=== PATIENT | female | born 1965 | race Caucasian/White ===

== ENCOUNTER → 2016-08-02 | Day surgery (SDC) | payer OTHER ==
[~2016-08-02] MED LIST: ALLEGRA ALLERG180 MG PO; ALLEGRA-D1 TAB.SR1; ALLERGY INJ; AZELASTINE137 MCG/0.; CALTRATE-600/VI1 TA1 PO; CALTRATE-600/VI1 TA2 PO; CELECOXIB200 MG PO; DIGESTIVE ADVA1 EAC1 PO; FLONASE ALLERG9.9 ML; LAMISIL; MULTI VITAMIN1 EACH PO; MULTI-VITAMIN1 TAB; NEXIUM PO; PRAVACHOL20 MG PO; PROTONIX PO; SINGULAIR; SINUS DECONGEST10 MG PO; TRAMADOL HCL50 M1 PO; VOLTAREN75 MG PO; WELLBUTRIN PO; YOUNGEVITY PO; ZELNORM; ZYRTEC10 M1 PO; ZYRTEC10 M2 PO; [UNRECOGNIZED DRUG - OTHER] PO
--- NOTE | ~2016-08-02 | OR ---
Unit #: [id number] #: [id number] Patient: PRADIP KRISHNAN [id number] [address] [place], [place] [address] [id number] O MR#: [id number] NAME: PRADIP KRISHNAN ROOM: Date of Procedure: 08/02/2016 Admission Date: 08/02/2016 Surgeon: Atif Vidal M.D. : 1965 Attending Physician: Atif Vidal M.D. Primary Care Physician: Deloris Myers M.D. OPERATIVE REPORT SERVICES PROVIDED 1. Therapeutic left greater trochanteric bursa steroid injection. 2. Fluoroscopy of the left greater trochanter. PREOPERATIVE DIAGNOSES 1. Left greater trochanteric bursitis. 2. Left sacroiliac joint syndrome. 3. Obstructive sleep apnea, on CPAP. 4. Irritable bowel syndrome, diverticulosis. POSTOPERATIVE DIAGNOSES 1. Left greater trochanteric bursitis. 2. Left sacroiliac joint syndrome. 3. Obstructive sleep apnea, on CPAP. 4. Irritable bowel syndrome, diverticulosis. PROCEDURE PERFORMED Left greater trochanteric bursa steroid injection with fluoroscopy. FOLLOW-UP/REVIEW OF SYSTEMS/PHYSICAL EXAM Ms. Krishnan has responded well to a left sacroiliac joint steroid injection with near complete resolution of left lower back pain for few months. She has left hip pain at this time located on the left greater trochanter, and was recommended left greater trochanteric steroid injection. X-rays of the left hip were within normal limits. She does have pain on walking, climbing stairs, and appears to have greater trochanteric bursitis with the predominant pain generator. Procedure was performed as follows with her consent. INDICATIONS/COMMENTS AND CONSENTS/STATEMENT OF MEDICAL NECESSITY The patient's current medications, allergies and vital signs are documented in the nursing assessment. The risks and benefits of the intervention(s) were discussed with the patient in detail including but not limited to infection, bleeding, meningitis, steroid induced side-effects, nerve damage, paralysis, spinal headaches, neuritis, persistent or worsening pain. The patient wishes to proceed. A separate pain assessment is also in the chart. I have reviewed all of this and have reviewed this with the patient. A current History and Physical is also attached. DESCRIPTION OF PROCEDURE(S) 1. Monitoring and positioning: After appropriate discussions it was Unit #: [id number] #: [id number] Patient: PRADIP KRISHNAN decided to perform the procedure under local anesthesia without supplemental intravenous sedation. Vital signs were monitored in pre, intra and post-procedure phase. Monitoring included EKG, non-invasive BP, pulse oximetry, and temperature. These are documented and were stable. Appropriate supports and restraints were used. 2. Sedation: None. 3. Greater trochanteric bursa steroid injection: The patient was placed in the right lateral decubitus position. Positional supports were used. Sterile prep and drape with carried out with ChloraPrep. Local anesthesia was with infiltrated with 1 mL of 0.25% bupivacaine. The greater trochanter was identified and marked. Once anesthesia was established, a 25-gauge Quincke spinal needle was inserted and advanced to the left greater trochanter, perpendicular to the skin, and advanced to meet os. The needle was now slightly withdrawn. Negative aspiration was performed. Needle placement tested negative for intravascular placement. A left greater trochanteric bursa steroid injection was performed using a total of 5 mL of the solution containing 0.2% bupivacaine and 40 mg of Depo-Medrol. The needle(s) was then removed intact. The skin was washed off. Prep solution and dressings were applied at the injection site(s). The patient tolerated the procedure well. The patient was then observed in the recovery area for 30 minutes. RESULTS The patient had a consistent block with the dose of local anesthetic used. Pain relief was satisfactory. There were no complications or side effects. DISCHARGE CONDITION 1. The patient was discharged in satisfactory condition accompanied by a family member. 2. Post-procedure instructions were given. PLAN(S) The patient was advised to return to the clinic in 2 months for re-assessment and office visit. I thank the patient's referring physician for the opportunity to participate in the care of this patient. Please do not hesitate to call for any questions regarding this patient's pain management. Dictated by... Kadie Finney TD: 08/02/2016 22:59 JOB #: [id number] Unit #: [id number] #: [id number] Patient: PRADIP KRISHNAN OPERATIVE REPORT Page 1 of 1 X Atif Vidal MD PROCEDURE OPERATIVE NOTE
== END | disposition home or self-care (01) ==
LOC: CCSC 07:22
DX: M70.62 Trochanteric bursitis, left hip (principal); M53.3 Sacrococcygeal disorders, not elsewhere classified; G47.33 Obstructive sleep apnea (adult) (pediatric); K58.9 Irritable bowel syndrome, unspecified; K57.90 Diverticulosis of intestine, part unspecified, without perforation or abscess without bleeding
CPT/HCPCS: 77003; J1030; J1040; J2250; J3010

== ENCOUNTER → 2016-08-17 | Outpatient (CLI) | payer OTHER ==
--- NOTE | ~2016-08-17 | US5 ---
[facility] A Service of [facility] & [facility] RADIOLOGY TEXT RESULTS PATIENT: PRADIP KRISHNAN LOCATION: [facility] : 65 UNIT #: [id number] AGE: [address]: Yamilet España MD SEX: F ORDER DR: [id number] [facility] [address] [place], [place] [address] [id number] O MR#: [id number] Acc #: [id number] NAME: PRADIP KRISHNAN : 1965 SEX: F STUDY DATE/TIME: 08/17/2016 8:50 UNIT: [facility] ROOM: STUDY DESCRIPTION: US Abdominal Complete Attending Physician: Yamilet España M.D. Referring Physician: Yamilet España M.D. Ordering Physician: Yamilet España M.D. Primary Care Physician: Deloris Myers M.D. MEDICAL IMAGING REPORT This report is preliminary unless electronic signature is present EXAM Abdominal ultrasound complete 08/17/2016 HISTORY Right upper quadrant abdominal pain, vomiting, tenderness and swelling for 1 week. Abdominal distension and bloating. FINDINGS The liver demonstrates an increase in echotexture with attenuation of the ultrasound beam characteristic of fatty infiltration. No cystic or solid mass lesions were seen in the liver. The intra- and extrahepatic bile ducts are not dilated. The gallbladder is normal with no evidence of cholelithiasis, wall thickening or pericholecystic fluid. The common duct measures 3 mm. The pancreas and spleen are normal. The spleen measures 10 cm in greatest diameter. The visualized portions of the abdominal aorta and inferior vena cava are within normal limits. The right kidney is normal. There is a 2.3 cm cyst on the left kidney. IMPRESSION 1. Fatty infiltration of the liver. 2. Left renal cyst. Dictated by... Kendall Bradley M.D. THIS IS AN ELECTRONICALLY VERIFIED REPORT Kendall Bradley M.D. at 08/18/2016 8:29 AM MEHRAN/sonia TD: 08/17/2016 12:29 JOB #: [id number] [facility] A Service of [facility] & [facility] RADIOLOGY TEXT RESULTS PATIENT: PRADIP KRISHNAN LOCATION: [facility] : 65 UNIT #: [id number] AGE: [address]: Yamilet España MD SEX: F ORDER DR: MEDICAL IMAGING REPORT Page 1 of 1 COPY
== END | disposition home or self-care (01) ==
LOC: CWCC 08:36
DX: R10.811 Right upper quadrant abdominal tenderness (principal); K76.0 Fatty (change of) liver, not elsewhere classified; N28.1 Cyst of kidney, acquired
CPT/HCPCS: 76700

== ENCOUNTER → 2016-12-02 | Outpatient (CLI) | payer OTHER ==
--- NOTE | ~2016-12-02 | CR63 ---
[facility] A Service of [facility] RADIOLOGY TEXT RESULTS PATIENT: PRADIP KRISHNAN LOCATION: [facility] : 65 UNIT #: [id number] AGE: [address]: Vik Obregon MD SEX: F ORDER DR: [id number] [facility] [address] [place], [place] [address] [id number] O MR#: [id number] Acc #: [id number] NAME: PRADIP KRISHNAN : 1965 SEX: F STUDY DATE/TIME: 12/02/2016 14:29 UNIT: [facility] ROOM: STUDY DESCRIPTION: CR Chest 2 View Attending Physician: Vik Obregon M.D. Ordering Physician: Vik Obregon M.D. MEDICAL IMAGING REPORT This report is preliminary unless electronic signature is present EXAM Chest PA and lateral 12/02/2016 HISTORY Right knee medial meniscal tear. Preop right knee arthroscopy. Shortness of breath on exertion and cough for 3 days, chest congestion. Smoking history for 25 years. FINDINGS PA and lateral examination of the chest upright shows a good expansion of the parenchyma with a normal distribution of the pulmonary vascularity. There is no indication of congestion, effusion, infiltrate, tumor, or nodular density. The pleural reflections and diaphragmatic contours are normal. The cardiac silhouette and mediastinal anatomy is within normal limits. IMPRESSION Normal chest. Dictated by... Kendall Bradley M.D. THIS IS AN ELECTRONICALLY VERIFIED REPORT Kendall Bradley M.D. at 12/05/2016 7:30 AM Vincent TD: 12/02/2016 23:55 JOB #: [id number] MEDICAL IMAGING REPORT Page 1 of 1 COPY
--- NOTE | ~2016-12-02 | EKG ---
PATIENT: PRADIP KRISHNAN UNIT #: [id number] Ventricular Rate: 72 BPM Atrial Rate: 72 BPM P-R Interval: 128 ms QRS Duration: 86 ms Q-T Interval: 428 ms QTC Calculation(Bezet): 468 ms P [place]: 53 degrees Calculated R [place]: -5 degrees Calculated T [place]: 12 degrees Diagnosis Line: Normal sinus rhythm Diagnosis Line: Cannot rule out Inferior infarct , age Diagnosis Line: undetermined Diagnosis Line: Abnormal ECG Diagnosis Line: Diagnosis Line: Confirmed by EDGAR GENAO MD ([id number]) on 12/04/2016 Diagnosis Line: 2:53:20 PM INTERPRETING MD: CHADWICK GODINEZ
[2016-12-02 14:32] LABS: HEMATOCRIT 39.6 % (35.0-45.0); HEMOGLOBIN 13.2 gm/dL (12.0-16.0); MEAN CELL VOLUME 91.6 FL (83-96); MEAN CORPUSCULAR HEMOGLOBIN 30.5 PG (28-34); MEAN CORPUSCULAR HGB CONC 33.3 g/dL (30-36); MEAN PLATELET VOLUME 7.9 FL (6.5-11.5); RED BLOOD COUNT 4.32 X10e (3.90-5.30); WHITE BLOOD COUNT 9.9 X10e3 (4.0-10.5)
[2016-12-02 14:33] LABS: URINE APPEARANCE CLEAR; URINE BILIRUBIN NEG (NEG); URINE BLOOD NEG (NEG); URINE COLOR YELLOW; URINE GLUCOSE NEG (NEG); URINE KETONE NEG (NEG); URINE LEUKOCYTE ESTERASE NEG (NEG); URINE NITRATE NEG (NEG); URINE PH 7.5 (5-8); URINE PROTEIN NEG (NEG); URINE UROBILINOGEN 0.2 MG/DL (NEG)
[2016-12-02 14:36] LABS: CULTURE INDICATED? NO; URINE SOURCE CATH
[2016-12-02 15:08] LABS: BUN/CREATININE RATIO 13.75; CALCIUM SERUM 9.3 mg/dL (8.4-10.2); CREATININE SERUM 0.8 mg/dL (0.6-1.4); POTASSIUM 4.7 mmol/L (3.5-5.1)
== END | disposition home or self-care (01) ==
LOC: CLAB 14:03
PROVIDERS: Orthopaedic Surgery
DX: Z01.818 Encounter for other preprocedural examination (principal); S83.241A Other tear of medial meniscus, current injury, right knee, initial encounter; K21.9 Gastro-esophageal reflux disease without esophagitis; K58.9 Irritable bowel syndrome, unspecified; G47.30 Sleep apnea, unspecified; M85.80 Other specified disorders of bone density and structure, unspecified site; N28.1 Cyst of kidney, acquired; M53.3 Sacrococcygeal disorders, not elsewhere classified
CPT/HCPCS: 36415; 71020; 80048; 81003; 85027; 93005